=== PATIENT | female | born 1980 | race Caucasian/White ===

== ENCOUNTER 2016-10-02 14:04 | Emergency (ER) | payer OTHER ==
[~2016-10-02] VITALS: Ht 160 cm; Wt 72.6 kg
[~2016-10-02 14:04] MED LIST: CYCL10TA2 PO; CYCL5TAB PO; HYDR-971 PO; PRED20TA PO
[2016-10-02] MEDS ORDERED: NAPR500T PO (14:32)
[2016-10-02] MEDS ORDERED: HYDR-971 PO (14:32)
--- NOTE | 2016-10-02 14:36 | PHYS DOC ---
General Chief Complaint: HIP PAIN Stated Complaint: BILAT HIP PAIN POST FALL 10-01-2016 Time Seen by MD: 14:07 Source: patient Exam Limitations: no limitations Problems: History of Present Illness Initial Comments Pt is 36/F to ED c/o low back pain. Pt states 10/01 she slipped on wet steps at home, slid down 4 steps on her buttocks. No head trauma/LOC/OLEARY/neck pain, no leg weakness/bowel or bladder sx/ saddle anesthesia. Pt able to walk, denies bony pain states her thigh and lumbar paraspinal muscles very sore/tight. OTC meds not helping, pt refuses imaging "I didn't break anything." Onset: other Severity: moderate Pain/Injury Location: bilateral thigh, bilateral other Method of Injury: fell Modifying Factors: worse with jarring, worse with movement, improves with rest Allergies: Coded Allergies: No Known Drug Allergies (Unverified , 03/01/16) Past Medical History Medical History: no pertinent history Surgical History: noncontributory (TL), other Social History Smoker: non-smoker Alcohol: none Drugs: none Review of Systems Constitutional: denies chills, denies fever Respiratory: denies cough, denies shortness of breath Cardiovascular: denies chest pain, denies palpitations Gastrointestinal: denies nausea, denies vomiting Musculoskeletal: see HPI Psychiatric/Neurological: see HPI Physical Exam General Appearance: WD/WN, no apparent distress HEENT: normal ENT inspection Neck: non-tender, supple Cardiovascular/Respiratory: normal peripheral pulses, normal breath sounds, no respiratory distress Back: no CVA tenderness, no vertebral tenderness, decreased range of motion, muscle spasm Hips: bilateral hip normal inspection, bilateral hip normal range of motion, bilateral hip soft tissue tenderness (hamstrings tight/tender b/l no swell/ defect/mass) Neurologic/Tendon: normal sensation, normal motor functions, normal tendon functions, responds to pain, no evidence tendon injury, other (dtrs/strength/ sensory equal/intact b/l LE, neg SLR b/l) Psychiatric: alert, oriented x 3 Skin: normal color, warm/dry Departure Time of Disposition: 14:32 Disposition: 01 HOME, SELF-CARE Diagnosis: low back strain, leg contusions Condition: GOOD Patient Instructions: Contusion, [id number], Low Back Strain with Rehab- SportsMed, RICE - Routine Care for Injuries, [id number] Additional Instructions: Work excuse thru 10/04. Activity as tolerated. RICE, see handout. Rx: diego daniels 5mg #14 Take meds with food. Follow up with your doctor in 5-7 days if not better. Return to ED with new or changing symptoms. KELLY VASQUEZ DO Oct 02, 2016 14:36
[2016-10-02 14:45] VITALS: BP 102/68
== END 2016-10-02 14:45 | disposition home or self-care (01) ==
LOC: ER 14:04
DX: S39.012A Strain of muscle, fascia and tendon of lower back, initial encounter (principal); S70.12XA Contusion of left thigh, initial encounter; S70.11XA Contusion of right thigh, initial encounter; W10.8XXA Fall (on) (from) other stairs and steps, initial encounter; Y93.89 Activity, other specified; Y92.89 Other specified places as the place of occurrence of the external cause; Y99.8 Other external cause status
CPT/HCPCS: 99283

== ENCOUNTER 2017-02-18 17:16 | Emergency (ER) | payer OTHER ==
[~2017-02-18] VITALS: Ht 172.7 cm; Wt 93.0 kg
[~2017-02-18 17:16] MED LIST changes: +CYCL-331 PO; -CYCL10TA2 PO; +NAPR500T PO
[2017-02-18 17:35] VITALS: BP 160/83
[2017-02-18] MEDS ORDERED: KETOROLAC 60 MG/2 ML VIAL. IM ONE (17:45)
[2017-02-18] MEDS ORDERED: HYDR-2758 PO (17:46)
[2017-02-18] MEDS ORDERED: DIAZ5TAB PO (17:46)
[2017-02-18] MEDS ORDERED: NAPR275T59 PO (17:46)
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
== END 2017-02-18 18:05 | disposition home or self-care (01) ==
LOC: ER 17:16
DX: S39.012A Strain of muscle, fascia and tendon of lower back, initial encounter (principal); M54.30 Sciatica, unspecified side; V89.2XXA Person injured in unspecified motor-vehicle accident, traffic, initial encounter; Y93.89 Activity, other specified; Y99.8 Other external cause status; Y92.410 Unspecified street and highway as the place of occurrence of the external cause
CPT/HCPCS: 96372; 99283; J1885